=== PATIENT | male | born 1985 | race Caucasian/White ===

== ENCOUNTER 2016-08-08 14:49 | Emergency (ER) | payer MEDICAID ==
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
[2016-08-08] MEDS ORDERED: Morphine INJ* 10 MG/ML 1 ML CARPUJECT IV ONE (15:00)
[2016-08-08] MEDS ORDERED: Ondansetron INJ* 2 MG/ML VIAL IV ONE ×2 (15:00)
[2016-08-08] MEDS ORDERED: Ketorolac INJ* 30 MG/ML 1 ML VIAL IV ONE ×2 (15:01)
[2016-08-08] MEDS ORDERED: Morphine INJ* 10 MG/ML 1 ML CARPUJECT ONE ×2 (15:03)
[2016-08-08] MEDS ORDERED: HYDROmorphone INJ* 1 MG/ML CARPUJECT SYRINGE ONE ×2 (15:17)
[2016-08-08] MEDS ORDERED: HYDROmorphone INJ* 1 MG/ML CARPUJECT SYRINGE IV SLOW PU ONE (15:22)
--- NOTE | 2016-08-08 15:23 | RAD ---
INDICATION: Pain. Dislocation. COMPARISON: None TECHNIQUE: AP views were obtained. FINDINGS: There is anterior shoulder dislocation. There is a Hill-Sachs deformity. The AC joint is intact. IMPRESSION: ANTERIOR SHOULDER DISLOCATION.
[2016-08-08] MEDS ORDERED: fentaNYL* 50 MCG/ML 2 ML VIAL (100 MCG VIAL) ONE ×2 (15:41)
[2016-08-08] MEDS ORDERED: Flumazenil* 0.1 MG/ML 5 ML MDV ONE (15:42)
[2016-08-08] MEDS ORDERED: Midazolam* 1 MG/ML 10 ML VIAL (10 MG) ONE ×2 (15:42)
[2016-08-08] MEDS ORDERED: Naloxone* 0.4 MG/ML 10 ML VIAL ONE (15:42)
[2016-08-08] MEDS ORDERED: Midazolam* 1 MG/ML 2 ML VIAL (2 MG) IV SLOW PU ONE (15:58)
[2016-08-08] MEDS ORDERED: fentaNYL* 50 MCG/ML 2 ML VIAL (100 MCG VIAL) IV SLOW PU ONE (15:58)
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
--- NOTE | 2016-08-08 16:37 | RAD ---
INDICATION: Left shoulder dislocation status post external reduction. COMPARISON: Comparison is made with a prior x-ray study of the left shoulder of the same date. TECHNIQUE: A single view of the left shoulder was obtained in the AP projection. FINDINGS: The bones are normal alignment. There has been interval reduction of the previously noted anterior dislocation. There is flattening and deformity of the superolateral aspect of the humeral head consistent with a Hill-Sachs fracture. IMPRESSION: 1. STATUS POST EXTERNAL REDUCTION. THE BONES ARE IN NORMAL ALIGNMENT. 2. HILL-SACHS FRACTURE.
[2016-08-08 18:20] VITALS: BP 121/62
== END 2016-08-08 18:18 | disposition home or self-care (01) ==
LOC: ED 14:49
DX: S42.292A Other displaced fracture of upper end of left humerus, initial encounter for closed fracture (principal); S43.005A Unspecified dislocation of left shoulder joint, initial encounter; W19.XXXA Unspecified fall, initial encounter; Y93.9 Activity, unspecified; Y92.9 Unspecified place or not applicable; F17.210 Nicotine dependence, cigarettes, uncomplicated; X58.XXXA Exposure to other specified factors, initial encounter
CPT/HCPCS: 96374; 96375; 99285; J1170; J1885; J2250; J2270; J2310; J2405; J3010